=== PATIENT | male | born 1980 | race Caucasian/White ===

== ENCOUNTER 2017-07-15 16:23 | Emergency (ER) | payer OTHER ==
[~2017-07-15] VITALS: Ht 188 cm; Wt 101.4 kg
[2017-07-15 16:27] VITALS: BP 165/92; PULSE 83; RESP 16; O2SAT 98
--- NOTE | 2017-07-15 19:08 | ED.REPORT ---
HPI-Extremity Problem Lower Date of Service Jul 15, 2017 ED Provider: Haylie Portillo MD Pt is a 37 year old male with a history of asthma and HTN who presents to the ED complaining of bilateral lower extremity swelling onset 1 day ago. He denies erythema, pain, and warmth to his lower extremities, as well as chest pain, SOB , fever and chills. The pt presented to [facility] with his symptoms and he was referred to the ED for further evaluation. Per [facility], the pt had an elevated d-dimer at 1.88. Nursing Notes Stated Complaint: BLOOD CLOT IN HEART/SENT BY [facility] Chief Complaint: Extremity Trauma Nursing Notes Reviewed: Yes Allergies: Coded Allergies: No Known Allergies (Unverified , 07/15/17) Scheduled Furosemide (Lasix) 20 Mg Tablet 20 MG PO DAILY General Time Seen by MD: 19:07 Chief Complaint Other (LE swelling) Hx Obtained From: Patient Arrived By: Walk-in Onset Occurred: Yesterday Symptom Duration: Since onset Severity: Current: No pain currently Severity: Maximum: No pain Recent Healthcare: Recent doctor visit Similar Sx Previous: No Past Medical History Past Medical History Reports: Asthma, Hypertension Past Surgical History None reported Smoking History Unknown if Ever Smoker Social History Alcohol Use: Denies alcohol use Drug Use: Denies drug use Other Social History: Good social support Ambulatory Status Independent Review of Systems Denies erythema to lower extremities Denies warmth to lower extremities Constitutional: Denies: Chills, Fever Musculoskeletal: Reports: Extremity swelling, Denies: Extremity pain Complete sys rev & neg: except as marked. Respiratory: Denies: Shortness of breath Cardiovascular: Denies: Chest pain Physical Exam Initial Vital Signs Vital Signs (First) Date Time Temp Pulse Resp B/P Pulse Ox O2 Delivery O2 Flow Rate FiO2 07/15/17 16:27 36.8 83 16 165/92 98 Room Air Initial VS: Reviewed, Vital signs abnormal Head / Eyes: Atraumatic, Normocephalic Neck: Supple, Full range of motion Respiratory: Breath sounds normal, Clear to auscultation, No respiratory distress Upper Extremities: Vascular intact, Neuro intact Skin: Warm, Dry, No cyanosis Neurologic: Alert, Oriented, Nonfocal Psychiatric: Mood/affect normal, Behavior normal Lower Extremity / Pelvis / MS: Neurologic intact, Vascular intact Ankle / Foot: Neurologic intact, Vascular intact General/Constitutional: Awake, Alert Cardiovascular: Heart rate NL, Regular rhythm, Heart sounds NL Lower Ext Edema: Positive: Bilateral 3+ Interpretation & Diagnostics US VENOUS LEG DUPLEX BILATERAL: IMPRESSION: Normal for age. No sign of DVT. Dictated by: Yuri Devi M.D. on 07/15/2017 at 20:12 Lab Results Interpretation Result Diagram: 07/15/17 1930 07/15/17 1930 Test 07/15/17 19:30 White Blood Count 6.1th/mm3 (3.8-10.1) Red Blood Count 4.29mil/mm3 (4.40-5.80) Hemoglobin 13.8g/dL (13.8-17.2) Hematocrit 40.3% (41.0-50.0) Mean Corpuscular Volume 93.9fL (81-100) Mean Corpuscular Hemoglobin 32.2pg (27.0-35.0) Mean Corpuscular Hemoglobin Concent 34.2% (32.0-37.0) Red Cell Distribution Width 17.5% (12.3-15.4) Platelet Count 83bil/L (150-400) Neutrophils (%) (Auto) 57.0% (40-74) Lymphocytes (%) (Auto) 22.8% (14-46) Monocytes (%) (Auto) 16.0% (4-12) Eosinophils (%) (Auto) 3.4% (0-5) Basophils (%) (Auto) 0.8% (0-3) Sodium Level 137mEq/L (134-144) Potassium Level 3.8mEq/L (3.5-5.2) Chloride Level 93mEq/L (97-108) Carbon Dioxide Level 27mmol/L (18-29) Blood Urea Nitrogen 5mg/dL (6-20) Creatinine 0.54mg/dL (0.76-1.27) Estimat Glomerular Filtration Rate 184mL/min (>59) Glucose Level 102mg/dL (60-99) Calcium Level 8.8mg/dL (8.5-10.1) Re-Eval/Medical Decision Med Decision/Clinical Course The patient was sent due to bilateral lower extremity swelling, there is concern for DVT. His ultrasound is negative for DVT. His thought his symptoms are related to a new medication, his last dose was yesterday. February indeed be the case, he doesn't have any signs of renal failure. The patient was given a couple of days of Lasix to help decrease the swelling. The patient has known hypertension and was switched to a different medication by urgent care. Source of Hx: Old records Re-Evaluation/Progress #1: Time of Eval: 19:24 Re-Evaluation/Progress Note: Informed pt of plan for US to check for blood clots. Pt understands and agrees with plan. All questions addressed. Re-Evaluation/Progress #2: Time of Eval: 19:59 Re-Evaluation/Progress Note: Pt rechecked. Informed pt of reassuring US results and plan to discharge on lasix. Pt understands and agrees with plan. F/U instructions and RTER warnings given. All questions addressed. Counseled Regarding: Diagnosis, Need for follow-up, When/why to return to ED Discharge & Departure Impression: Primary Impression: Lower extremity edema Laterality: bilateral Qualified Code: R60.0 - Localized edema Disposition: Home Discharge Condition All VS Reviewed: Yes Condition: Stable Patient Instructions: Leg Edema (ED) Additional Instructions: Thank you for entrusting us with your care today. Your ultrasound is reassuring and you do not have a blood clot. Take Lasix 1x daily in the morning. It will make you pee and will decrease the swelling in your legs. Keep your follow up appointment. Return to the emergency department for any new or concerning symptoms such as pain in your legs or increased swelling. Referrals: NOPCP (PCP) Carlos Law MD Attestation Portions of this note were transcribed by Vicky Lowry. I, Dr. Portillo personally performed the history, physical exam and medical decision-making; I reviewed and confirmed the accuracy of the information in the transcribed note. Signed by : Lauro Manriquez, 07/15/17. copies to: Carlos Law MD, Jena M MD Jul 15, 2017 19:08 Vicky Alexandre Jul 15, 2017 19:26
[2017-07-15 19:40] LABS: BASOPHILS % (AUTO) 0.8 % (0-3); EOSINOPHILS % (AUTO) 3.4 % (0-5); Mean Corpuscular Hemoglobin 32.2 pg (27.0-35.0); Mean Corpuscular Volume 93.9 fL (81-100); Platelet Count 83 bil/L (150-400)
[2017-07-15] MEDS ORDERED: FURO-129 PO (19:58)
--- NOTE | 2017-07-15 20:13 | DRSVH ---
PROCEDURE: US VENOUS LEG DUPLEX BILATERAL INDICATIONS: swelling TECHNIQUE: Real-time imaging, as well as color and pulse Doppler interrogation, were performed of the deep veins of both legs from the inguinal ligament to the popliteal fossa. COMPARISON: None. FINDINGS: The deep veins are normally compressible, and free of intraluminal thrombus. Color and pu lse Doppler demonstrate normal phasic intravascular flow. There is normal augmentation response to d istal compression maneuver. IMPRESSION: Normal for age. No sign of DVT. Dictated by: Yuri Devi M.D. on 07/15/2017 at 20:12 Approved by: Yuri Devi M.D. on 07/15/2017 at 20:12
[2017-07-15 20:21] VITALS: BP 148/85; PULSE 95; RESP 18; O2SAT 95
== END 2017-07-15 20:41 | disposition home or self-care (01) ==
LOC: SED 16:23
DX: R60.0 Localized edema (principal); I10 Essential (primary) hypertension; J45.909 Unspecified asthma, uncomplicated